=== PATIENT | female | born 1985 | race Caucasian/White ===

== ENCOUNTER 2016-10-24 17:21 | Inpatient (IN) | payer OTHER ==
[~2016-10-24] VITALS: Ht 162.6 cm; Wt 76.7 kg
[2016-10-24 18:06] VITALS: BP 116/73
--- NOTE | 2016-10-24 19:08 | NUR ---
AMBULATED TO ER TF01
--- NOTE | 2016-10-24 19:20 | NUR ---
Patient being evaluated by TRIMMER MEAT.
[2016-10-24 19:53] LABS: BASOPHILS # (AUTO) 0.2 K/uL (0.00-0.22); BASOPHILS % (AUTO) 1.7 % (0.0-2.0); EOSINOPHILS # (AUTO) 0.1 K/uL (0-0.4); EOSINOPHILS % (AUTO) 1.5 % (0.0-4.0); HEMATOCRIT 34.6 % (36-48); HEMOGLOBIN 11.3 g/dL (12.0-16.0); LYMPHOCYTES # (AUTO) 2.8 K/uL (2.5-16.5); LYMPHOCYTES % (AUTO) 29.2 % (20.5-51.1); MEAN CORPUSCULAR HEMOGLOBIN 26 pg (27-31); MEAN CORPUSCULAR HGB CONC 33 g/dL (33-37); MEAN CORPUSCULAR VOLUME 78 fL (80-94); MONOCYTES # (AUTO) 0.5 K/uL (0.8-1.0); MONOCYTES % (AUTO) 5.8 % (1.7-9.3); NEUTROPHILS # (AUTO) 5.9 K/uL (1.8-7.7); NEUTROPHILS % (AUTO) 61.8 % (42.2-75.2); PLATELET COUNT (AUTO) 274 K/uL (140-450); RED BLOOD CELL COUNT(AUTO) 4.42 MIL/uL (4.20-5.40); RED CELL DISTRIBUTION WIDTH 13.6 % (11.6-13.7); WHITE BLOOD COUNT (AUTO) 9.5 K/uL (4.8-10.8)
[2016-10-24 20:03] LABS: ANION GAP 14.9 (8-16); CALCIUM 8.8 mg/dL (8.5-10.1); CARBON DIOXIDE 26.5 mmol/L (21-32); CREATININE 0.8 mg/dL (0.6-1.3); POTASSIUM 3.4 mmol/L (3.5-5.1)
[2016-10-24 20:06] LABS: APPEARANCE,URINE CLEAR (CLEAR); BILIRUBIN,URINE NEGATIVE (NEGATIVE); BLOOD, URINE NEGATIVE (NEGATIVE); COLOR,URINE YELLOW (YELLOW); LEUKOCYTE ESTERASE ,URINE NEGATIVE (NEGATIVE); NITRITE, URINE NEGATIVE (NEGATIVE); PH,URINE 6.5 (5.0-9.0); PROTEIN,URINE NEGATIVE (NEGATIVE); UGLUCOSE NEGATIVE (NEGATIVE); UROBILINOGEN,URINE 0.2 EU/dL (0.2 - 1)
[2016-10-24 20:08] LABS: ALBUMIN 3.9 g/dL (3.4-5.0); TOTAL BILIRUBIN 0.3 mg/dL (0.0-1.0); TOTAL PROTEIN, SERUM 7.7 g/dL (6.4-8.2)
--- NOTE | 2016-10-24 21:20 | NUR ---
ALL RESULTS BACK AND NOTED BY CLAMP FORKLIFT OPERATOR AND FOR ADMISSION.
--- NOTE | 2016-10-24 21:22 | NUR ---
MOVED TO ER BED 8
--- NOTE | 2016-10-24 22:00 | NUR ---
Patient will be admitted to care of DR ELIZABETH. Admited to TELE 120B. Will go to room 120B. Belongings list completed. Report to TOM GARNER .
[2016-10-24 22:35] VITALS: BP 121/80
[2016-10-24] MEDS ORDERED: LORazepam 2 MG/ML VIAL IVP PRN (22:35)
--- NOTE | 2016-10-24 22:35 | NUR ---
ADMITTED A 30 F FROM ER. CAME BY WHEELCHAIR DUE TO RT LOWER QUADRANT ABDOMINAL PAIN THAT RADIATES TO THE BACK X 4 DAYS. AWAKE,ALERT AND ORIENTED X4. MED SURG PT. AMBULATORY. SKIN INTACT. WITH IV ACCESS ON THE RT AC G320. CLEAR AND PATENT. PLAN OF CARE DISCUSSED AND VERBALIZED UNDERSTANDING LIKE NPO STATUS AND THE SURGICAL CONSULT WITH DR. PHAM. BED ON LOW POSITION. CALL LIGHT PLACED WITHIN EASY REACH. WILL CONTINUE TO MONITOR.
[2016-10-24] MEDS ORDERED: cefTRIAXone 1,000 MG VIAL ONE (23:21)
[2016-10-24] MEDS: DEXT 5% /NACL 0.9% 1,000 ML IV SCH (23:25)
--- NOTE | 2016-10-25 00:30 | NUR ---
MADE ROUNDS . SLEEPING WELL AT THIS TIME. NO S/S OF ANY DISCOMFORT NOR PAIN NOTED.
--- NOTE | 2016-10-25 02:45 | NUR ---
MADE ROUNDS. PT IS SLEEPING AT THIS TIME. NO S/S OF ANY DISCOMFORT NOR PAIN NOTED. WILL CONTINUE TO MONITOR.
--- NOTE | 2016-10-25 04:30 | NUR ---
PT AWAKE. NO C/O ANY PAIN NOTED. SCD MACHINE AT BEDSIDE. PT AWARE OF THE BENEFITS. BUT PT IS AMBULATORY . OFF AT THIS TIME.
[2016-10-25 05:58] LABS: BASOPHILS # (AUTO) 0.2 K/uL (0.00-0.22); BASOPHILS % (AUTO) 2.2 % (0.0-2.0); EOSINOPHILS # (AUTO) 0.1 K/uL (0-0.4); EOSINOPHILS % (AUTO) 1.6 % (0.0-4.0); HEMOGLOBIN 10.6 g/dL (12.0-16.0); LYMPHOCYTES # (AUTO) 3.1 K/uL (2.5-16.5); LYMPHOCYTES % (AUTO) 34.3 % (20.5-51.1); MEAN CORPUSCULAR HEMOGLOBIN 25 pg (27-31); MEAN CORPUSCULAR HGB CONC 32 g/dL (33-37); MEAN CORPUSCULAR VOLUME 78 fL (80-94); MONOCYTES # (AUTO) 0.7 K/uL (0.8-1.0); MONOCYTES % (AUTO) 7.9 % (1.7-9.3); NEUTROPHILS # (AUTO) 4.9 K/uL (1.8-7.7); PLATELET COUNT (AUTO) 243 K/uL (140-450); RED BLOOD CELL COUNT(AUTO) 4.23 MIL/uL (4.20-5.40); RED CELL DISTRIBUTION WIDTH 13.8 % (11.6-13.7)
--- NOTE | 2016-10-25 06:00 | NUR ---
SLEPT WELL DURING THE NIGHT. NO C/O PAIN NOTED.
[2016-10-25 06:25] LABS: ANION GAP 11.2 (8-16); CALCIUM 8.1 mg/dL (8.5-10.1); CARBON DIOXIDE 28.5 mmol/L (21-32); CREATININE 0.6 mg/dL (0.6-1.3); POTASSIUM 3.7 mmol/L (3.5-5.1)
--- NOTE | 2016-10-25 07:25 | NUR ---
ENDORSED PT IN STABLE CONDITION TO AM NURSE.
--- NOTE | 2016-10-25 07:26 | NUR ---
RECEIVED REPORT FROM THE PERMACULTURE CONTRACTOR NURSE AT BEDSIDE FOR CONTINUITY OF CARE. PT IS AWAKE AND ORIENTED. INTRODUCED MYSELF AND UPDATED THE BOARD. NOTED IV ON R AC 20 G, D5NS AT 100ML/HR INFUSING. PT IS WAITING TO SEE DR. PHAM, SURGEON FOR CONSULT. V/S WITHIN NORMAL RANGE. DENIES PAIN AT THIS TIME. WILL CONTINUE TO MONITOR PT.
[2016-10-25 08:00] VITALS: BP 97/62
[2016-10-25] MEDS: DEXT 5% /NACL 0.9% 1,000 ML IV SCH ×2 (08:26→12:28)
--- NOTE | 2016-10-25 09:16 | NUR ---
PATIENT HAS BEEN SCREENED AND CATEGORIZED MODERATE NUTRITION RISK. PATIENT WILL BE SEEN WITHIN 3-5 DAYS OF ADMISSION. 10/27/16-10/29/[address]
--- NOTE | 2016-10-25 10:24 | NUR ---
FAXED INITIAL REVIEW TO [facility] [phone] PHONE [phone] REF [id number]
--- NOTE | 2016-10-25 12:33 | NUR ---
PT RESTING COMFORTABLY, IN BED. NO SIGNS OF DISTRESS. WILL CONTINUE TO MONITOR PT.
[2016-10-25] MEDS ORDERED: MORPHINE SULFATE 2 MG/ML SYR IVP PRN (15:05)
[2016-10-25] MEDS: MORPHINE SULFATE 2 MG/ML SYR IVP PRN (15:45)
--- NOTE | 2016-10-25 15:50 | NUR ---
ADMINISTERED MORPHINE. PAIN LEVEL 6/10. PT TOLERATED WELL. WILL CONTINUE TO MONITOR PT.
[2016-10-25 16:00] VITALS: BP 106/67
--- NOTE | 2016-10-25 17:02 | NUR ---
PT RESTING COMFORTABLY. NO REACTION FROM MORPHINE. PAIN IS LESS PER PT. WILL CONTINUE TO MONITOR PT.
--- NOTE | 2016-10-25 18:03 | NUR ---
PT SLEEPING. NO SIGNS OF DISTRESS. WILL CONTINUE TO MONITOR PT.
--- NOTE | 2016-10-25 19:25 | NUR ---
ENDORSED PT TO THE FULFILLMENT REPRESENTATIVE NURSE, AT BEDSIDE FOR CONTINUITY OF CARE. PT IS STABLE. LET HER KNOW THAT DR. PHAM WILL BE COMING AROUND 10PM. SHE WILL BE NPO UNTIL SHE IS SEEN. PT AWARE. WANTED TO KNOW IF HER 4 KIDS CAN VISIT. TOLD HER OK, ONLY 30 MIN. THEY ARE AWARE.
--- NOTE | 2016-10-25 19:26 | NUR ---
RECEIVED REPORT,ASSUMED CARE. PT AOX4. DENIES PAIN, NO S/S OF RESPIRATORY DISTRESS AT THIS TIME. CONTINUE TO MONITOR FOR ABDOMINAL PAIN DUE TO APPENDICITS. MOTHER VISITING AT BEDSIDE. IV ACCESS TO RT AC, GAUGE 20, INTACT AND PATENT. NO S/S OF INFILTRATION NOTED AT THIS TIME. PT STILL ON NPO. AWAITING FOR DR. PHAM AND DR. ELIZABETH TO SEE THE PT. DISCUSSED PLAN OF CARE. PT VERBALIZED UNDERSTANDING. ALL NEEDS ANTICIPATED. CALL LIGHT WITHIN EASY REACH.
--- NOTE | 2016-10-25 20:45 | NUR ---
DR. PHAM CAME, EXAMINED THE PT. DISCUSSED PLAN OF CARE WITH THE PT. PT VERBALIZED UNDERSTANDING. MD ORDERED CLEAR LIQUID DIET FOR NOW AND CBC, CHEM 7 TOMORROW. VERBAL ORDER READ BACK. NOTED AND CARRIED OUT.
--- NOTE | 2016-10-25 21:15 | NUR ---
PROVIDED PT WITH SOME JELL-O AND JUICES. TOLERATED WELL. PT DENIES PAIN AT THIS TIME. WILL CONTINUE TO MONITOR.
[2016-10-26] VITALS: BP 103/63
[2016-10-26] MEDS: DEXT 5% /NACL 0.9% 1,000 ML IV SCH ×2 (00:16→13:29)
[2016-10-26] MEDS: MORPHINE SULFATE 2 MG/ML SYR IVP PRN ×3 (00:30→23:53)
--- NOTE | 2016-10-26 00:30 | NUR ---
ROUTINE ROUNDS, PT AWAKE, RESTING COMFORTABLY. DENIES PAIN AT THIS TIME. WILL CONTINUE TO MONITOR. Addendum: 10/26/16 at 0351 by Socrates Coleman RN DISREGARD PREVIOUS CHARTING 10/26/16 0030 MORPHINE 2MG IVP ADMINISTERED PER PATIENT'S REQUEST DUE TO FLANK/ABDOMINAL PAIN 08/07. REPOSITIONED FOR COMFORT. WILL CONTINUE TO MONITOR AND REASSESS FOR EFFECTIVENESS.
--- NOTE | 2016-10-26 02:11 | NUR ---
ROUNDS MADE, PT SLEEPING AT THIS TIME. NO S/S OF RESPIRATORY DISTRESS AT THIS TIME. NO FACIAL GRIMACING OR MOANING INDICATING PAIN. WILL CONTINUE TO MONITOR.
--- NOTE | 2016-10-26 04:17 | NUR ---
PT SLEEPING AT THIS TIME, NO FACIAL GRIMACING OR MOANING INDICATING PAIN. WILL CONTINUE TO MONITOR.
[2016-10-26 06:57] LABS: BASOPHILS # (AUTO) 0.1 K/uL (0.00-0.22); BASOPHILS % (AUTO) 1.3 % (0.0-2.0); EOSINOPHILS # (AUTO) 0.1 K/uL (0-0.4); EOSINOPHILS % (AUTO) 2.2 % (0.0-4.0); HEMOGLOBIN 10.3 g/dL (12.0-16.0); LYMPHOCYTES % (AUTO) 32.5 % (20.5-51.1); MEAN CORPUSCULAR HEMOGLOBIN 25 pg (27-31); MEAN CORPUSCULAR HGB CONC 32 g/dL (33-37); MEAN CORPUSCULAR VOLUME 78 fL (80-94); MONOCYTES # (AUTO) 0.6 K/uL (0.8-1.0); MONOCYTES % (AUTO) 9.8 % (1.7-9.3); NEUTROPHILS # (AUTO) 3.5 K/uL (1.8-7.7); NEUTROPHILS % (AUTO) 54.2 % (42.2-75.2); PLATELET COUNT (AUTO) 220 K/uL (140-450); RED BLOOD CELL COUNT(AUTO) 4.08 MIL/uL (4.20-5.40); RED CELL DISTRIBUTION WIDTH 13.7 % (11.6-13.7); WHITE BLOOD COUNT (AUTO) 6.3 K/uL (4.8-10.8)
[2016-10-26 07:16] LABS: ANION GAP 10.6 (8-16); CALCIUM 7.6 mg/dL (8.5-10.1); CARBON DIOXIDE 25.9 mmol/L (21-32); CREATININE 0.6 mg/dL (0.6-1.3); POTASSIUM 3.5 mmol/L (3.5-5.1)
--- NOTE | 2016-10-26 07:25 | NUR ---
PT AAOX4, VERBALLY RESPONSIVE. DENIES PAIN. NO S/S OF RESPIRATORY DISTRESS AT THIS TIME. PT IN STABLE CONDITION. ENDORSED TO NEXT SHIFT FOR CONTINUITY OF CARE.
--- NOTE | 2016-10-26 07:26 | NUR ---
RECEIVED REPORT FORM THE STATISTICAL CONSULTANT NURSE AT BEDSIDE FOR CONTINUITY OF CARE. PT IS WAKE AND ORIENTED. IN PAIN. WILL MEDICATE WITH MORNING MEDS. PT IS ON CLEAR LIQ DIET. DR. PHAM HAD COME LAST NIGHT AND SAW PT. ORDERED LABS FOR THIS MORNING AND U/S. WILL CALL MD WITH RESULTS. IV ON L HAND 22G D5NS AT 100ML. PATENT AND INTACT. WILL CONTINUE TO MONITOR PT.
--- NOTE | 2016-10-26 07:54 | NUR ---
V/S WITHIN NORMAL. PT EATING CLEAR LIQ DIET TRAY FOR BREAKFAST. WILL CONTINUE TO MONITOR PT.
[2016-10-26 08:00] VITALS: BP 107/68
--- NOTE | 2016-10-26 08:45 | NUR ---
ADMINISTERED MORPHINE. PT TOLERATED WELL. PAIN 6/10. WILL CONTINUE TO MONITOR PT.
--- NOTE | 2016-10-26 11:10 | NUR ---
PT SLEEPING SOUNDLY. NO SIGNS OF DISTRESS. WILL CONTINUE TO MONITOR PT.
[2016-10-26] MEDS: metroNIDAZOLE 500 MG/NS PREMIX 100 ML IV SCH ×2 (13:25→21:10)
--- NOTE | 2016-10-26 13:45 | NUR ---
PT WATCHING TV. NO SIGNS OF DISTRESS. PT REFUSES PAIN MED. PT STATES, "IT'S TOLERABLE. DON'T LIKE THE WAY IT MAKES ME FEEL." WILL CONTINUE TO MONITOR PT.
[2016-10-26 15:56] VITALS: BP 100/64
--- NOTE | 2016-10-26 16:05 | NUR ---
MOM AT BEDSIDE. NO COMPLAINTS. HAS SOME PAIN BUT REFUSES PAIN MEDS. PT STATES IT IS TOLERABLE. AWAITING U/S TO BE DONE.
--- NOTE | 2016-10-26 16:40 | NUR ---
U/S TECH WAS HERE TO ABD US.
--- NOTE | 2016-10-26 17:35 | NUR ---
PT'S IV INFILTRATED. PT HAND IS SORE. WILL GIVE HAND A REST. WILL RESTART IV SOON. WILL CONTINUE TO MONITOR PT.
--- NOTE | 2016-10-26 18:53 | NUR ---
NICCI, CHARGE NURSE RESTARTED IV ON R HAND 22G. PT TOLERATED WELL.
--- NOTE | 2016-10-26 19:10 | NUR ---
ENDORSED PT TO THE NIGHTSHIFT NURSE AT BEDSIDE FOR CONTINUITY OF CARE. PT IS VISITING WITH FRIENDS. NO COMPLAINTS AT THIS TIME. PT IN STABLE CONDITION.
--- NOTE | 2016-10-26 19:12 | NUR ---
PATIENT IS CURRENTLY AWAKE ALERT ORIENTED SITTING IN BED,IVF INFUSING WELL IV SITE PATENT.FAMILY AT BEDSIDE WITH THE PATIENT.CALL LIGHT WITHIN REACH WILL CONTINUE TO MONITOR.
--- NOTE | 2016-10-26 19:30 | NUR ---
Patient's Plan of Care was discussed and reviewed with ORTHODONTIC LAB TECHNICIAN: Mukul PANTOJA
[2016-10-26 20:00] VITALS: BP 113/69
--- NOTE | 2016-10-26 22:49 | NUR ---
ULTRASOUND REPORT IS IN THE SYSTEM I PAGED MD HDEZ WILL AWAIT FOR HIS CALL BACK.
--- NOTE | 2016-10-26 22:51 | NUR ---
MD HDEZ CALLED BACK AND WAS INFORMED OF ABD US RESULTS AND HE WAS UPDATED ON PATIENT'S CURRENT CONDITION AND MD SAID,"I WILL SEE HER IN THE MORNING." NO NEW ORDER GIVEN WILL CONTINUE TO MONITOR.
--- NOTE | 2016-10-27 00:30 | NUR ---
PATIENT STABLE RESTING COMFORTABLY IN BED IN NO DISTRESS WILL CONTINUE TO MONITOR.
[2016-10-27] MEDS: DEXT 5% /NACL 0.9% 1,000 ML IV SCH ×2 (00:35→08:15)
--- NOTE | 2016-10-27 03:10 | NUR ---
PATIENT WAS COMPLAINING OF ABDOMINAL PAIN, SAID THAT MORPHINE DID NOT WORK. ASKED WHEN HER NEXT MORPHINE DOSE WAS, TOLD HER THAT THE NEXT DOSE IS AROUND 6 IN THE MORNING. GAVE HER OTHER OPTIONS. WILL CALL DR. ELIZABETH IN REGARDS TO HER PAIN.
--- NOTE | 2016-10-27 03:13 | NUR ---
MD ELIZABETH,A EXCHANGE WAS CALLED THEY WILL PAGE HIM AND WILL WAIT FOR HIS RETURN CALL.
--- NOTE | 2016-10-27 03:24 | NUR ---
Vanna WHITE CALLED BACK AND HE WAS INFORMED THAT PATIENT IS HAVING PAIN 7/10 AND WAS GIVEN MORPHINE AND HER NEXT DOSE IS NOT DUE YET I ASKED MD IS SHE CAN GET ANYTHING ELSE FOR HER PAIN.Vanna WHITE SAID,"NO WHAT SHE IS TAKING IS FINE JUST GIVE HER THE MORPHINE."NO NEW ORDER GIVEN BY MD. PATIENT IS AWARE THAT MD WAS INFORMED OF HER PAIN BUT SAID TO CONTINUE TAKING THE MORPHINE PATIENT VERBALIZES UNDERSTANDING. I OFFERED THE PATIENT SOME TYLENOL AND SHE AGREED.
[2016-10-27] MEDS: ACETAMINOPHEN 325 MG TAB PO PRN (03:44)
[2016-10-27] MEDS: metroNIDAZOLE 500 MG/NS PREMIX 100 ML IV SCH (04:57)
[2016-10-27 05:00] VITALS: BP 97/73
--- NOTE | 2016-10-27 06:36 | NUR ---
PATIENT IS CURRENTLY STABLE RESTING IN BED CALL LIGHT WITHIN REACH.
--- NOTE | 2016-10-27 06:43 | NUR ---
PATIENT SLEEPING AT THIS TIME WILL CONTINUE TO MONITOR.
--- NOTE | 2016-10-27 07:12 | NUR ---
ASSUMED CONTINUITY OF CARE. NO SIGNS AND SYMPTOMS OF ACUTE DISTRESS NOTED. INITIAL ASSESSMENT DONE. KEEP COMFORTABLE ON BED. EXPLAINED DIAGNOSIS, PLAN OF CARE, PAIN MANAGEMENT TEACHING, USE OF CALL LIGHT/BED/TV/BATHROOM. VERBALIZED UNDERSTANDING. CALL LIGHT WITHIN REACH.
--- NOTE | 2016-10-27 07:12 | NUR ---
PATIENT STABLE REPORT ENDORSED TO ABRAM ORTIZ.
[2016-10-27 07:37] LABS: BASOPHILS # (AUTO) 0.2 K/uL (0.00-0.22); BASOPHILS % (AUTO) 3.3 % (0.0-2.0); EOSINOPHILS # (AUTO) 0.1 K/uL (0-0.4); EOSINOPHILS % (AUTO) 1.8 % (0.0-4.0); HEMOGLOBIN 10.5 g/dL (12.0-16.0); LYMPHOCYTES # (AUTO) 2.1 K/uL (2.5-16.5); LYMPHOCYTES % (AUTO) 30.6 % (20.5-51.1); MEAN CORPUSCULAR HEMOGLOBIN 25 pg (27-31); MEAN CORPUSCULAR HGB CONC 32 g/dL (33-37); MEAN CORPUSCULAR VOLUME 79 fL (80-94); MONOCYTES # (AUTO) 0.6 K/uL (0.8-1.0); MONOCYTES % (AUTO) 8.2 % (1.7-9.3); NEUTROPHILS # (AUTO) 3.8 K/uL (1.8-7.7); NEUTROPHILS % (AUTO) 56.1 % (42.2-75.2); PLATELET COUNT (AUTO) 256 K/uL (140-450); RED BLOOD CELL COUNT(AUTO) 4.17 MIL/uL (4.20-5.40); RED CELL DISTRIBUTION WIDTH 13.4 % (11.6-13.7); WHITE BLOOD COUNT (AUTO) 6.8 K/uL (4.8-10.8)
[2016-10-27 07:46] LABS: ANION GAP 10.9 (8-16); CALCIUM 8.1 mg/dL (8.5-10.1); CREATININE 0.7 mg/dL (0.6-1.3); POTASSIUM 3.9 mmol/L (3.5-5.1)
[2016-10-27 08:00] VITALS: BP 108/71
--- NOTE | 2016-10-27 08:00 | NUR ---
Patient's Plan of Care was discussed and reviewed with EMPLOYEE RELATIONS DIRECTOR: ARUN ORTIZ
[2016-10-27] MEDS ORDERED: IBUP-2213 PO (09:28)
--- NOTE | 2016-10-27 09:49 | NUR ---
EXPLAINED MD D/C ORDER, D/C INSTRUCTIONS AND TEACHING, MD FOLLOW UP, MD PRESCRIPTION LIST EDUCATION AND TO CALL [facility] [place] FOR MD PRESCRIPTION, DISEASE MANAGEMENT, PAIN MANAGEMENT TEACHING. VERBALIZED UNDERSTANDING. VERBALIZED UNDERSTANDING.
--- NOTE | 2016-10-27 10:50 | NUR ---
D/C VIA WHEELCHAIR, ACCOMPANIED BY PT. MOTHER. AWAKE, ALERT, AND ORIENTED X4. SPEECH CLEAR. NO C/O PAIN. NO SOB, NOTED. IN STABLE CONDITION. INFORMED CHARGE NURSE NICCI MARTINO.
== END 2016-10-27 10:50 | disposition home or self-care (01) ==
LOC: MED 17:21 → MTU 22:42
PROVIDERS: ADMIT Preventive Medicine Preventive Medicine/Occupational Environmental Medicine; ATTEND Preventive Medicine Preventive Medicine/Occupational Environmental Medicine
DX: K80.70 Calculus of gallbladder and bile duct without cholecystitis without obstruction (principal); E83.52 Hypercalcemia; E66.9 Obesity, unspecified; E87.6 Hypokalemia; R73.9 Hyperglycemia, unspecified; N83.202 Unspecified ovarian cyst, left side; D64.9 Anemia, unspecified; Z68.29 Body mass index [BMI] 29.0-29.9, adult; Z88.6 Allergy status to analgesic agent
CPT/HCPCS: 36415; 71010; 76700; 80048; 80053; 81003; 81025; 83690; 85025; 85651; 86140; 87040; 87081; 87086; 93005; 99285; J0696; J2270; J3490; J7042; J7060; Q0092

== ENCOUNTER 2017-02-03 06:15 | Emergency (ER) | payer SELFPAY ==
[~2017-02-03] VITALS: Ht 165.1 cm; Wt 77.1 kg
[~2017-02-03 06:15] MED LIST: IBUP-2213 PO
--- NOTE | 2017-02-03 06:55 | NUR ---
AMBULATED TO ER BED 8
[2017-02-03 06:56] VITALS: BP 119/83
--- NOTE | 2017-02-03 07:00 | NUR ---
31/F CAME IN WITH C/O PERSISTENT COUGH, RUNNY NOSE X 5 DAYS. PT STATES "IT HURTS TO BREATH AND WHEN I COUGH". PT REPORTS PRODUCTIVE COUGHING OF YELLOW PHLEGM. PT TOOK NYQUIL LAST NIGHT, REPORTS MINIMAL RELIEF. ALL LUNG SOUNDS CBTA,18RR EVEN AND UNLABORED, 98%RA, 72 HR EVEN AND REGULAR. DENIES PMH/RX.
--- NOTE | 2017-02-03 07:22 | NUR ---
Patient discharged with v/s stable. Written and verbal after care instructions given and explained. Patient alert, oriented and verbalized understanding of instructions. Ambulatory with steady gait. All questions addressed prior to discharge. ID band removed. Patient advised to follow up with PMD. Rx of CODEINE PHOSPHATE/PROMETHAZINE HYDROCHLORIDE 10MG-6.25MG/5ML, 5ML PO EVERY 4 HOURS PO PRN given. Patient educated on indication of medication including possible reaction and side effects. Opportunity to ask questions provided and answered.
[2017-02-03 07:25] VITALS: BP 123/72
== END 2017-02-03 07:22 | disposition home or self-care (01) ==
LOC: MED 06:15
DX: J06.9 Acute upper respiratory infection, unspecified (principal); K21.9 Gastro-esophageal reflux disease without esophagitis; Z90.89 Acquired absence of other organs
CPT/HCPCS: 99283

== ENCOUNTER 2018-02-27 13:01 | Emergency (ER) | payer MEDICAID, OTHER ==
[~2018-02-27] VITALS: Ht 162.6 cm; Wt 79.4 kg
[2018-02-27 13:12] VITALS: BP 119/78
[2018-02-27] MEDS ORDERED: IBUPROFEN 800 MG TAB PO ONE (13:45)
[2018-02-27 14:18] VITALS: BP 114/62
== END 2018-02-27 14:18 | disposition home or self-care (01) ==
LOC: MED 13:01
DX: S39.012A Strain of muscle, fascia and tendon of lower back, initial encounter (principal); K21.9 Gastro-esophageal reflux disease without esophagitis; Z90.49 Acquired absence of other specified parts of digestive tract; Z79.1 Long term (current) use of non-steroidal anti-inflammatories (NSAID); X58.XXXA Exposure to other specified factors, initial encounter; Y93.89 Activity, other specified; Y92.89 Other specified places as the place of occurrence of the external cause; Y99.8 Other external cause status
CPT/HCPCS: 72100; 81002; 81025; 99283

== ENCOUNTER 2018-09-09 20:37 | Emergency (ER) | payer OTHER ==
[~2018-09-09] VITALS: Ht 162.6 cm; Wt 70.8 kg
[2018-09-09 20:45] VITALS: BP 122/74
--- NOTE | 2018-09-09 20:47 | NUR ---
TO LOBBY A/W BED, AMBULATORY
--- NOTE | 2018-09-09 21:15 | NUR ---
PATIENT AMBULATED TO ER BED 3.
--- NOTE | 2018-09-09 21:30 | NUR ---
32 YO F BIB SELF PRESENTS TO ED C/O LEFT FOOT PAIN AND X 2 DAYS WITH NEW ONSET SWELLING X 1 DAY. PT REPORTS NOTICING FOOT PAIN WHILE WALKING AT WORK WHICH GRADUALLY INCREASED AFTER WORKING HER 12 HOUR SHIFT. ON THE SECOND DAY SHE REPORTED NOTICING NEW INCIDENCE OF SWELLING TO THE LATERAL ASPECT OF THE LEFT ANKLE. -- PT AWAKE, ALERT, CALM, COOPERATIVE. ANSWERING QUESTIONS APPROPRIATELY, BEHAVIOR AGE APPROPRIATE. -- SKIN PINK, WARM, DRY. BREATHING EVEN, UNLABORED. VSS. -- PEDAL PULSES IN TACT BILATERALLY. CAP REFILL BRISK, <3 SECONDS. -- PT IS ABLE TO AMBULATE. STATES PAIN INCREASES WITH HYPERFLEXION. PMH-- DENIES
--- NOTE | 2018-09-09 21:39 | NUR ---
XRAY AT BEDSIDE.
--- NOTE | 2018-09-09 21:59 | NUR ---
Patient discharged with v/s stable. Written and verbal after care instructions given and explained. Patient alert, oriented and verbalized understanding of instructions. Ambulatory with steady gait. All questions addressed prior to discharge. ID band removed. Patient advised to follow up with PMD. Rx of NAPROSYN AND PREDNISONE given. Patient educated on indication of medication including possible reaction and side effects. Opportunity to ask questions provided and answered.
[2018-09-09 22:00] VITALS: BP 122/74
== END 2018-09-09 22:00 | disposition home or self-care (01) ==
LOC: MED 20:37
DX: M76.62 Achilles tendinitis, left leg (principal); K21.9 Gastro-esophageal reflux disease without esophagitis; F41.9 Anxiety disorder, unspecified; Z90.49 Acquired absence of other specified parts of digestive tract; Z79.899 Other long term (current) drug therapy
CPT/HCPCS: 73650; 99283

== ENCOUNTER 2022-08-10 20:45 | Emergency (ER) | payer OTHER ==
[~2022-08-10] VITALS: Ht 165.1 cm; Wt 72.1 kg
[2022-08-10 20:46] VITALS: BP 120/79
--- NOTE | 2022-08-10 20:49 | NUR ---
to lobby a/w bed ambulatory
--- NOTE | 2022-08-10 22:40 | NUR ---
DR. ORDOÑEZ CALLED PT AT LOBBY WITH NO ANSWER
== END 2022-08-10 22:40 | disposition left against medical advice (07) ==
LOC: MED 20:45
DX: R05.9 Cough, unspecified (principal); Z53.21 Procedure and treatment not carried out due to patient leaving prior to being seen by health care provider
CPT/HCPCS: 99281

== ENCOUNTER 2022-12-18 23:20 | Emergency (ER) | payer OTHER ==
[~2022-12-18] VITALS: Ht 162.6 cm; Wt 77.6 kg
[2022-12-18 23:39] VITALS: BP 120/78; PULSE 71; RESP 12; TEMP 97.9; O2SAT 99
[2022-12-18] MEDS ORDERED: NACL 0.9% 1,000 ML IV ONE (23:45)
[2022-12-18 23:54] LABS: BASOPHILS % (AUTO) 0.4 % (0.0-2.0); EOSINOPHILS # (AUTO) 0.2 K/uL (0-0.4); EOSINOPHILS % (AUTO) 1.5 % (0.0-4.0); HEMATOCRIT 29.3 % (36-48); HEMOGLOBIN 9.6 g/dL (12.0-16.0); LYMPHOCYTES # (AUTO) 3.1 K/uL (2.5-16.5); LYMPHOCYTES % (AUTO) 29.1 % (20.5-51.1); MEAN CORPUSCULAR HEMOGLOBIN 24 pg (27-31); MEAN CORPUSCULAR HGB CONC 33 g/dL (33-37); MEAN CORPUSCULAR VOLUME 72.6 fL (80-94); MONOCYTES # (AUTO) 0.8 K/uL (0.8-1.0); MONOCYTES % (AUTO) 7.5 % (1.7-9.3); NEUTROPHILS # (AUTO) 6.6 K/uL (1.8-7.7); NEUTROPHILS % (AUTO) 61.5 % (42.2-75.2); PLATELET COUNT (AUTO) 365 K/uL (140-450); RED BLOOD CELL COUNT(AUTO) 4.04 MIL/uL (4.20-5.40); RED CELL DISTRIBUTION WIDTH 16.8 % (11.6-13.7); WHITE BLOOD COUNT (AUTO) 10.7 K/uL (4.8-10.8)
[2022-12-19 00:09] LABS: ALBUMIN 2.8 g/dL (3.4-5.0); ANION GAP 14.2 (8-16); CALCIUM 9.5 mg/dL (8.5-10.1); CARBON DIOXIDE 23.6 mmol/L (21-32); CREATININE 0.4 mg/dL (0.6-1.3); POTASSIUM 3.8 mmol/L (3.5-5.1); TOTAL BILIRUBIN 0.2 mg/dL (0.0-1.0); TOTAL PROTEIN, SERUM 7.3 g/dL (6.4-8.2)
[2022-12-19 00:17] VITALS: BP 122/78; PULSE 68; RESP 21; O2SAT 100
[2022-12-19] MEDS ORDERED: NACL 0.9% 1,000 ML IV ONE (01:05)
== END 2022-12-19 04:00 | disposition home or self-care (01) ==
LOC: MED 23:20
DX: O21.0 Mild hyperemesis gravidarum (principal); O99.283 Endocrine, nutritional and metabolic diseases complicating pregnancy, third trimester; E86.0 Dehydration; O99.013 Anemia complicating pregnancy, third trimester; O99.343 Other mental disorders complicating pregnancy, third trimester; F41.9 Anxiety disorder, unspecified; F32.9 Major depressive disorder, single episode, unspecified; Z3A.30 30 weeks gestation of pregnancy; Z79.1 Long term (current) use of non-steroidal anti-inflammatories (NSAID); Z88.5 Allergy status to narcotic agent
CPT/HCPCS: 36415; 76805; 80053; 82948; 85025; 85379; 96360; 96361; 99284; J7030; Q0092

== ENCOUNTER 2023-03-09 18:51 | Emergency (ER) | payer OTHER ==
[~2023-03-09] VITALS: Ht 162.6 cm; Wt 74.8 kg
[2023-03-09 19:03] VITALS: BP 184/93; PULSE 58; RESP 20; O2SAT 97
[2023-03-09] MEDS ORDERED: LABETALOL 20 MG/4 ML VIAL IVP ONE ×2 (19:35→21:15)
[2023-03-09] MEDS ORDERED: ACETAMINOPHEN EXTRA STRENGTH 500 MG TAB PO ONE (19:40)
[2023-03-09] MEDS ORDERED: carvediloL 6.25 MG TAB PO ONE (20:25)
[2023-03-09 20:43] LABS: BASOPHILS # (AUTO) 0.1 K/uL (0.00-0.22); BASOPHILS % (AUTO) 0.7 % (0.0-2.0); EOSINOPHILS # (AUTO) 0.2 K/uL (0-0.4); EOSINOPHILS % (AUTO) 3.1 % (0.0-4.0); HEMATOCRIT 35.2 % (36-48); HEMOGLOBIN 11.6 g/dL (12.0-16.0); LYMPHOCYTES # (AUTO) 2.7 K/uL (2.5-16.5); MEAN CORPUSCULAR HEMOGLOBIN 28 pg (27-31); MEAN CORPUSCULAR HGB CONC 33 g/dL (33-37); MEAN CORPUSCULAR VOLUME 83.2 fL (80-94); MONOCYTES # (AUTO) 0.5 K/uL (0.8-1.0); MONOCYTES % (AUTO) 6.7 % (1.7-9.3); NEUTROPHILS # (AUTO) 4.3 K/uL (1.8-7.7); NEUTROPHILS % (AUTO) 54.5 % (42.2-75.2); PLATELET COUNT (AUTO) 411 K/uL (140-450); RED BLOOD CELL COUNT(AUTO) 4.23 MIL/uL (4.20-5.40); RED CELL DISTRIBUTION WIDTH 25.4 % (11.6-13.7); WHITE BLOOD COUNT (AUTO) 7.8 K/uL (4.8-10.8)
[2023-03-09 21:14] LABS: ALBUMIN 2.7 g/dL (3.4-5.0); ANION GAP 12.4 (8-16); CALCIUM 8.5 mg/dL (8.5-10.1); CARBON DIOXIDE 27.6 mmol/L (21-32); CREATININE 0.5 mg/dL (0.6-1.3); TOTAL BILIRUBIN 0.2 mg/dL (0.0-1.0); TOTAL PROTEIN, SERUM 6.7 g/dL (6.4-8.2)
[2023-03-09] MEDS ORDERED: LABE100T63 PO (22:30)
[2023-03-09] MEDS ORDERED: ENALAPRILAT 2.5 MG/2 ML VIAL IVP ONE (23:05)
[2023-03-10] MEDS ORDERED: LABE100T63 PO (00:31)
[2023-03-10 01:46] VITALS: BP 161/88; PULSE 53; RESP 20; O2SAT 97
== END 2023-03-10 01:46 | disposition home or self-care (01) ==
LOC: MED 18:51
DX: O16.5 Unspecified maternal hypertension, complicating the puerperium (principal); R00.2 Palpitations; R07.9 Chest pain, unspecified; Z79.899 Other long term (current) drug therapy; Z88.5 Allergy status to narcotic agent
CPT/HCPCS: 36415; 71045; 71275; 80053; 81002; 84484; 85025; 85379; 93005; 96374; 99285; J3490; Q0092; Q9967